=== PATIENT | female | born 2000 | race Hispanic/Latino ===

== ENCOUNTER 2022-05-30 02:48 | Emergency (ER) | payer SELFPAY ==
[2022-05-30] MEDS ORDERED: LIDOCAINE 1% W/EPI 1:100,000 50 ML MDV ONE (03:24)
[2022-05-30] MEDS ORDERED: LIDOCAINE 1% MPF 5 ML VIAL ONE (03:44)
--- NOTE | 2022-05-30 04:01 | ER ---
Nurse's Notes [facility] Name: Hattie Soto Age: 21 yrs Sex: Female : 2000 Arrival Date: 05/30/2022 Time: 02:51 Bed 14 Private MD: Diagnosis: Laceration without foreign body of right thumb without damage to nail Presentation: 05/30 02:59 Chief complaint: Patient states: Cut my finger at work with a sharp blade, I am not ke1 sure that the blade was clean and i am also not up to date with my tetanus vaccine. Coronavirus screen: Vaccine status: Patient reports being unvaccinated. Ebola Screen: No symptoms or risks identified at this time. Initial Sepsis Screen: Does the patient meet any 2 criteria? No. Patient's initial sepsis screen is negative. Does the patient have a suspected source of infection? No. Patient's initial sepsis screen is negative. Risk Assessment: Do you want to hurt yourself or someone else? Patient reports no desire to harm self or others. Onset of symptoms was May 29, 2022 at 20:00. 02:59 Method Of Arrival: Ambulatory ke1 02:59 Acuity: SHAD 4 ke1 Triage Assessment: 03:03 General: Appears in no apparent distress. Behavior is appropriate for age. Pain: ke1 Complains of pain in L thumb Pain currently is 5 out of 10 on a pain scale. at worst was 6 out of 10 on a pain scale. level that patient reports is acceptable is 5 out of 10 on a pain scale. Musculoskeletal: Capillary refill < 3 seconds, Range of motion: intact in all extremities, 03:08 Injury Description: Laceration sustained to L thumb is clean, not bleeding, was ke1 sustained 6-12 hours ago. no active bleeding noted at this time. Historical: - Allergies: 03:02 No Known Allergies; ke1 - PMHx: 03:03 PTSD; Depressive disorder; Anxiety; ke1 - Immunization history:: Client reports having NOT received the Covid vaccine. - Social history:: Smoking status: Reported history of juuling and/or vaping. Screenin:07 [facility] ED Fall Risk Assessment (Adult) History of falling in the last 3 months, ke1 including since admission No falls in past 3 months (0 pts) Confusion or Disorientation No (0 pts) Intoxicated or Sedated No (0 pts) Impaired Gait No (0 pts) Mobility Assist Device Used No (0 pt) Altered Elimination No (0 pt) Score/Fall Risk Level 0 - 2 = Low Risk. Abuse screen: Denies threats or abuse. Nutritional screening: No deficits noted. Tuberculosis screening: No symptoms or risk factors identified. Assessment: 04:39 Reassessment: Patient denies pain at this time. Patient states feeling better. ke1 Vital Signs: 02:59 BP 121 / 83; Pulse 64; Resp 17; Temp 98.1; Pulse Ox 100% ; Weight 63.5 kg; Height 5 ft. ke1 1 in. (154.94 cm); Pain 5/10; 04:39 BP 119 / 77; Pulse 67; Resp 17; Temp 98.0; Pulse Ox 100% on R/A; ke1 02:59 Body Mass Index 26.45 (63.50 kg, 154.94 cm) ke1 ED Course: 02:51 Patient arrived in ED. ja2 02:53 Klarissa Skinner RN is Primary Nurse. ke1 02:56 Jerome Conteh DO is Attending Physician. ms3 03:02 Triage completed. ke1 03:07 Arm band placed on left wrist. ke1 03:08 Bed in low position. Call light in reach. ke1 04:40 No provider procedures requiring assistance completed. Patient did not have IV access ke1 during this emergency room visit. Administered Medications: 04:23 Drug: boosterix 0.5 ml Route: IM; Site: right deltoid; ke1 04:41 Follow up: Response: No adverse reaction ke1 Medication: 04:23 Vaccine Information Statement (VIS) provided today. Questions and/or concerns ke1 addressed. VIS edition date: May 30, 2022. Outcome: 04:00 Discharge ordered by . ms3 04:40 Discharged to home ambulatory. ke1 04:40 Discharged to home ambulatory. 04:40 Condition: good 04:40 Discharge instructions given to patient. 04:41 Patient left the ED. ke1 Signatures: Jerome Conteh DO DO ms3 Ting Gray ja2 Klarissa Skinner RN RN ke1 Corrections: (The following items were deleted from the chart) 03:07 02:59 Chief complaint: Patient states: Cut my finger at work with a sharp blade, I am ke1 not sure that the blade was clean and i am also not update with my tetanus vaccine ke1
[2022-05-30] MEDS ORDERED: TDAP (DIPHTH,PERTUSS(ACELL),TET VAC) 0.5 ML VIAL IMVAC ONE (04:22)
[2022-05-30 04:55] VITALS: O2SAT 100
[2022-05-30 04:56] VITALS: BP 119/77; TEMP 98
--- NOTE | 2022-05-31 04:41 | EDPHYS ---
Physician Documentation [facility] Name: Hattie Soto Age: 21 yrs Sex: Female : 2000 Arrival Date: 05/30/2022 Time: 02:51 Bed 14 Private MD: ED Physician Jerome Conteh HPI: 05/30 04:00 This 21 yrs old Female presents to ER via Ambulatory with complaints of Finger ms3 Injury. 04:00 21-year-old female with past medical history of depression, PTSD, anxiety presents ms3 after cutting her right thumb 7 hours prior to arrival with a pocket knife while at work. Patient states the discomfort is a 6/10 and throbbing. Patient denies alleviating or inciting factors.. Historical: - Allergies: 03:02 No Known Allergies; ke1 - PMHx: 03:03 PTSD; Depressive disorder; Anxiety; ke1 - Immunization history:: Client reports having NOT received the Covid vaccine. - Social history:: Smoking status: Reported history of juuling and/or vaping. ROS: 04:00 Constitutional: Negative for fever, and chills. Neck: Negative for injury, pain, and ms3 swelling, Cardiovascular: Negative for chest pain, and palpitations. Respiratory: Negative for shortness of breath, cough, wheezing, and pleuritic chest pain, Abdomen/GI: Negative for abdominal pain, nausea, vomiting, diarrhea, and constipation, MS/Extremity: Negative for injury and deformity. 04:00 Skin: Positive for laceration(s). 04:00 All other systems are negative. Exam: 04:00 Constitutional: This is a well developed, well nourished patient who is awake, alert, ms3 and in no acute distress. Head/Face: Normocephalic, atraumatic. Cardiovascular: Regular rate and rhythm with a normal S1 and S2. No gallops, murmurs, or rubs. Normal PMI, no JVD. No pulse deficits. Respiratory: Lungs have equal breath sounds bilaterally, clear to auscultation and percussion. No rales, rhonchi or wheezes noted. No increased work of breathing, no retractions or nasal flaring. Abdomen/GI: Soft, non-tender, with normal bowel sounds. No distension or tympany. No guarding or rebound. No evidence of tenderness throughout. 04:00 Skin: injury, laceration(s), the wound is approximately 1 cm(s), of the right thumb. Vital Signs: 02:59 BP 121 / 83; Pulse 64; Resp 17; Temp 98.1; Pulse Ox 100% ; Weight 63.5 kg; Height 5 ft. ke1 1 in. (154.94 cm); Pain 5/10; 04:39 BP 119 / 77; Pulse 67; Resp 17; Temp 98.0; Pulse Ox 100% on R/A; ke1 02:59 Body Mass Index 26.45 (63.50 kg, 154.94 cm) ke1 Laceration: 04:00 Wound Repair of 1cm ( 0.4in ) subcutaneous laceration to right thumb. Linear shaped.. ms3 Distal neuro/vascular/tendon intact. Anesthesia: Digital block administered with 3 mls of 1% lidocaine. Wound prep: Simple cleansing by me. Skin closed with 2 5-0 Prolene using simple sutures and sterile technique. Patient tolerated well. MDM: 02:56 Patient medically screened. ms3 04:00 Differential diagnosis: Thumb laceration. Data reviewed: vital signs, nurses notes, and ms3 as a result, I will discharge patient. Care significantly affected by the following Social Determinants of Health: Poor access to healthcare and/or lack of insurance. Counseling: I had a detailed discussion with the patient and/or guardian regarding: the historical points, exam findings, and any diagnostic results supporting the discharge/admit diagnosis, the need for outpatient follow up. ED course: Laceration closed without complications. Patient to follow-up with primary care physician in 10 days for suture removal. Patient understands and agrees with plan. All questions were answered. Return precautions discussed include worsening symptoms, or any other concerns.. Administered Medications: 04:23 Drug: boosterix 0.5 ml Route: IM; Site: right deltoid; ke1 04:41 Follow up: Response: No adverse reaction ke1 Disposition Summary: 05/30/22 04:00 Discharge Ordered Location: Home ms3 Condition: Stable ms3 Diagnosis - Laceration without foreign body of right thumb without damage to nail ms3 Followup: ms3 - With: Private Physician - When: 06/09/2022 - Reason: Recheck today's complaints Discharge Instructions: - Discharge Summary Sheet ms3 - Laceration Care, Adult ms3 Forms: - Medication Reconciliation Form ms3 - Thank You Letter ms3 - Antibiotic Education ms3 - Prescription Opioid Use ms3 - Work release form ke1 Signatures: Jerome Conteh DO DO ms3 Klarissa Skinner, RN RN ke1 Corrections: (The following items were deleted from the chart) 04:01 04:00 Contusion of right ring finger without damage to nail, initial encounter ms3 ms3 05:04 05:03 This 21 yrs old Female presents to ER via Ambulatory with complaints of ms3 Finger Injury. ms3
== END 2022-05-30 04:41 | disposition home or self-care (01) ==
LOC: ER 02:48
PROC: 0HQFXZZ Repair Right Hand Skin, External Approach (ICD-10-PCS; principal; 2022-05-30)
DX: S61.011A Laceration without foreign body of right thumb without damage to nail, initial encounter (principal)
CPT/HCPCS: 96372; 99283; J2001